=== PATIENT | female | born 1990 | race Caucasian/White ===

== ENCOUNTER → 2019-04-26 | Outpatient (CLI) | payer MEDICAID ==
[2019-04-26 11:02] LABS: ABSOLUTE LYMPHOCYTES (AUTO) 1.7 10^3/uL (0.5-4.7); ABSOLUTE MONOCYTES (AUTO) 0.4 10^3/uL (0.1-1.4); ABSOLUTE NEUT (AUTO) 3.6 10^3/uL (1.7-8.2); BASOPHILS % (AUTO) 0.3 % (0-2); EOSINOPHILS % (AUTO) 0.8 % (0-6); HEMATOCRIT 37.6 % (36.0-47.0); HEMOGLOBIN 12.9 g/dL (12.0-15.5); LYMPHOCYTES % (AUTO) 29.5 % (13-45); MEAN CORPUSCULAR HEMOGLOBIN 29.8 pg (27.0-33.4); MEAN CORPUSCULAR HGB CONC 34.4 g/dL (32.0-36.0); MEAN CORPUSCULAR VOLUME 87 fl (80-97); MONOCYTES % (AUTO) 6.8 % (3-13); PLATELET COUNT 292 10^3/uL (150-450); RED BLOOD COUNT 4.34 10^6/uL (3.72-5.28); RED CELL DISTRIBUTION WIDTH 14.3 % (11.5-14.0); SEGMENTED NEUTROPHILS % (AUTO) 62.6 % (42-78); TOTAL CELLS COUNTED % (AUTO) 100 %; WHITE BLOOD COUNT 5.8 10^3/uL (4.0-10.5)
[2019-04-26 11:33] LABS: ALBUMIN 4.1 g/dL (3.5-5.0); ALKALINE PHOSPHATASE 39 U/L (38-126); ANION GAP 10 (5-19); ASPARTATE AMINO TRANSFERASE 18 U/L (14-36); BILIRUBIN,DIRECT 0.3 mg/dL (0.0-0.4); BILIRUBIN,TOTAL 0.4 mg/dL (0.2-1.3); BLOOD UREA NITROGEN 8 mg/dL (7-20); CALCIUM 9.1 mg/dL (8.4-10.2); CARBON DIOXIDE 26 mmol/L (22-30); CHLORIDE 104 mmol/L (98-107); CHOLESTEROL 167.32 mg/dL (0-200); GLUCOSE 83 mg/dL (75-110); POTASSIUM 4.4 mmol/L (3.6-5.0); TOTAL PROTEIN 6.9 g/dL (6.3-8.2); TRIGLYCERIDES 69 mg/dL (<150)
[2019-04-26 11:46] LABS: DIRECT LDL 99 mg/dL (<100)
[2019-04-26 11:58] LABS: ERYTHROCYTE SEDIMENTATION RATE 9 mm/hr (0-20)
== END ==
LOC: OD 09:54
PROVIDERS: ATTEND Nurse Practitioner Acute Care
DX: E07.9 Disorder of thyroid, unspecified (principal)
CPT/HCPCS: 36415; 80053; 80061; 84436; 84443; 84480; 85025; 85652; 86038; 86430

== ENCOUNTER → 2020-06-12 | Outpatient (CLI) | payer OTHER, MEDICAID ==
--- NOTE | 2020-06-12 19:25 | NEURO WORKBENCH EEG REPORT ---
EEG Report Patient: Ann Up ID: [id number] Referring Doctor: Lance Lamb MD DOS: 06/12/2020 Medications: meloxicam, levetiracetam History This is a 29 year old right handed female with a history of asthma and anxiety. This EEG was requested for headaches. EEG Interpretation This EEG was recorded in the awake, drowsy, and sleep states. The awake EEG is characterized by a well-organized background with a well-developed and reactive posterior dominant rhythm of 11 Hz. The remainder of the background was characterized by a combination of alpha with prominent beta frequencies. Drowsiness was characterized by slowing of the background rhythms. Vertex waves and sleep spindles were seen in the midline head regions. Photic stimulation resulted in a minimal driving response. There was one sharply contoured waveform in the right>left central regions at the beginning of the recording. This was not definitively epileptiform and could be consistent with a vertex wave. The EKG showed a regular rhythm of ~60bpm. There was artifact in the left temporal (T3) channel throughout the recording. EEG Classification * Normal EEG Impression This EEG is within normal limits for age. There was one sharply contoured waveform during the recording in the right more than left central region that could be consistent with a vertex wave. If clinically indicated, a follow up EEG may be done to further evaluate for epileptiform abnormalities. INTERPRETING NEUROLOGIST: Jessie Garcia MD, CPC Board Certified in Neurology, with special qualification in Child Neurology, and in Clinical Neurophysiology [facility]
== END ==
LOC: NEURO 12:51
PROVIDERS: ATTEND Pediatrics
DX: R51.9 Headache, unspecified (principal); R25.8 Other abnormal involuntary movements; R41.3 Other amnesia
CPT/HCPCS: 95819